=== PATIENT | female | born 1935 | race Caucasian/White ===

== ENCOUNTER 2017-04-03 18:02 | Emergency (ER) | payer MEDICARE, BC ==
[~2017-04-03 18:02] MED LIST: ALTACE10 M4 PO; ANXIETY; ASPIRIN EC81 MG PO; ASPIRIN325 MG PO; ATIVAN0.5 MG PO; AZITHROMYCIN250 MG PO; BLOOD PRESSURE; COLACE100 MG PO; DULCOLAX10 MG PR; ENALAPRIL MALEA10 MG PO; FEOSOL1 TAB PO; METOPROLOL TART25 M1 PO; MILK OF MAGNESIA PO; MIRALAX17 G1 PO; MOTION SICKNESS25 M4 PO; PROTONIX40 M1 PO; PROVENTIL HFA6.7 GM IH; REFRESH TEARS15 M1 OP; SALINE MIST44 ML; SENEXON-S TABL1 EAC1 PO; TYLENOL325 M2 PO; VASERETIC 10-251 TAB PO; XANAX0.25 M1 PO; XARELTO10 MG PO; ZOFRAN4 M2 PO; ZOFRAN4 MG PO; ZOLOFT50 M1 PO; [UNRECOGNIZED DRUG - OTHER] TOP; [UNRECOGNIZED DRUG - OTHER] TP
[2017-04-03] MEDS ORDERED: CERTAVITE-ANTI1 EACH PO (18:33)
[2017-04-03] MEDS ORDERED: ENSURE ORIGINA237 ML PO (18:34)
[2017-04-03] MEDS ORDERED: ARICEPT10 M2 PO (18:34)
[2017-04-03] MEDS ORDERED: MAPAP500 M2 PO (18:35)
[2017-04-03] MEDS ORDERED: LEXAPRO10 M2 PO (18:35)
[2017-04-03] MEDS ORDERED: COUMADIN5 M2 PO (18:37)
[2017-04-03] MEDS ORDERED: COUMADIN7.5 M1 PO (18:37)
[2017-04-03] MEDS ORDERED: BLU EMU TOP (18:39)
[2017-04-03] MEDS ORDERED: DOK100 M3 PO (18:39)
[2017-04-03] MEDS ORDERED: LOPERAMIDE2 M2 PO (18:40)
[2017-05-25] MEDS ORDERED: XANAX0.25 M1 PO (13:01)
[2017-05-25] MEDS ORDERED: ACETAMINOPHEN650 M2 PO (13:08)
[2017-05-25] MEDS ORDERED: POLYETHYLENE G255 G1 PO (13:15)
[2017-05-25] MEDS ORDERED: PREPARATION H1 EAC4 PR (13:15)
[2017-06-04] MEDS ORDERED: LOVENOX80 MG/0.1 SC (13:16)
== END 2017-04-03 20:58 ==
LOC: EDMED 18:02
DX: S30.0XXA Contusion of lower back and pelvis, initial encounter (principal); S29.011A Strain of muscle and tendon of front wall of thorax, initial encounter; F03.90 Unspecified dementia, unspecified severity, without behavioral disturbance, psychotic disturbance, mood disturbance, and anxiety; W19.XXXA Unspecified fall, initial encounter; Y92.009 Unspecified place in unspecified non-institutional (private) residence as the place of occurrence of the external cause